=== PATIENT | male | born 1965 | race Caucasian/White ===

== ENCOUNTER 2022-08-23 14:18 | Emergency (ER) | payer OTHER ==
[~2022-08-23] VITALS: Ht 182.9 cm; Wt 81.8 kg
[2022-08-23] MEDS ORDERED: ELEPSIA XR1000 MG (14:46)
[2022-08-23] MEDS ORDERED: METFORMIN HCL500 M1 PO (14:47)
[2022-08-23] MEDS ORDERED: METOPROL TAR25 M1 PO (14:48)
[2022-08-23] MEDS ORDERED: LEVOTHYROXIN50 MCG PO (14:49)
[2022-08-23] MEDS ORDERED: JANUVIA50 MG PO (14:50)
[2022-08-23 14:53] LABS: URINE BILIRUBIN - DIPSTICK NEGATIVE (NEGATIVE); URINE BLOOD DIPSTICK NEGATIVE (NEGATIVE); URINE COLOR YELLOW; URINE GLUCOSE - DIPSTICK NEGATIVE (NEGATIVE); URINE KETONE NEGATIVE (NEGATIVE); URINE LEUK ESTERASE NEGATIVE (NEGATIVE); URINE PROTEIN - DIPSTICK NEGATIVE (NEG-TRACE); URINE SPECIFIC GRAVITY <=1.005; URINE UROBILINOGEN - DIPSTICK 0.2 E.U./dL (0.2)
[2022-08-23 14:54] LABS: URINE NITRITE - DIPSTICK NEGATIVE (Negative)
== END 2022-08-23 15:56 | disposition home or self-care (01) | DRG 918 ==
LOC: ED 14:18
PROVIDERS: Emergency Medicine
DX: T50.902A Poisoning by unspecified drugs, medicaments and biological substances, intentional self-harm, initial encounter (principal); Y92.149 Unspecified place in prison as the place of occurrence of the external cause